=== PATIENT | female | born 1945 | race Caucasian/White ===

== ENCOUNTER 2019-03-15 22:25 | Inpatient (IN) | payer MEDICARE, OTHER ==
[~2019-03-15] VITALS: Ht 154.9 cm; Wt 68.0 kg
[~2019-03-15 22:25] MED LIST: AMLO-361 PO; ASPI1CPM PO; ATEN50TA PO; BENA40TA8 PO; DIPH1TAB PO; FLUO20CA42 PO; LEVO75TA7 PO; MECL-118 PO; METF-441 PO; OMEP20CA15 PO; PIOG45TA5 PO
--- NOTE | 2019-03-15 23:08 | NUR ---
BIBRA 37 FOR C/O INTERMITTENT TOOTHACHE X5 MONTHS. WAS SEEN AT [facility] ON SATURDAY GIVEN AMOX- CLAV PO
[2019-03-15] MEDS ORDERED: IV NS 0.9% 1,000 ML IV PRN (23:30)
[2019-03-15 23:41] LABS: BASOPHILS # (AUTO) 0.1 /CMM (0.0-0.2); BASOPHILS % (AUTO) 1.1 % (0.0-2.0); EOSINOPHILS % (AUTO) 0.8 % (0.0-6.0); HEMATOCRIT 32 % (33-45); HEMOGLOBIN 10.6 g/dL (11.5-14.8); LYMPHOCYTES # (AUTO) 1.3 /CMM (0.8-4.8); LYMPHOCYTES % (AUTO) 17.5 % (20.0-44.0); MEAN CORPUSCULAR HGB CONC 33 g/dl (31.0-36.0); MEAN CORPUSCULAR VOLUME 87 fL (82-100); MONOCYTES # (AUTO) 1.1 /CMM (0.1-1.30); MONOCYTES % (AUTO) 14.6 % (2.0-12.0); NEUTROPHILS # (AUTO) 4.8 /CMM (1.8-8.9); PLATELET COUNT (AUTO) 217 /CMM (150-450); RED BLOOD CELL COUNT(AUTO) 3.68 MIL/uL (4.0-5.2); WHITE BLOOD COUNT (AUTO) 7.2 K/uL (4.3-11.0)
[2019-03-15 23:46] LABS: CALCIUM, SERUM 8.9 mg/dL (8.5-10.1); CARBON DIOXIDE 27 mmol/L (21-32); CHLORIDE 102 mmol/L (98-107); CREATININE 1.9 mg/dL (0.6-1.3); GLUCOSE 204 mg/dL (74-106); POTASSIUM 4.2 mmol/L (3.5-5.1); SODIUM SERUM 139 mmol/L (136-145); UREA NITROGEN, BLOOD 38 mg/dL (7-18)
[2019-03-16] MEDS ORDERED: ACETAMINOPHEN 325 MG TABLET PO ONE (02:30)
[2019-03-16] MEDS ORDERED: ACETAMINOPHEN 325 MG TABLET ONE (02:35)
[2019-03-16] MEDS ORDERED: ROSU10TA2 PO (03:19)
[2019-03-16] MEDS ORDERED: HYDR25TA4 PO (03:19)
[2019-03-16] MEDS ORDERED: AMOX-430 PO (03:19)
[2019-03-16] MEDS ORDERED: AMLO-365 PO (03:19)
[2019-03-16 04:05] VITALS: BP 129/65
--- NOTE | 2019-03-16 04:05 | NUR ---
RN OPENING ADMISSION NOTES RECEIVED PATIENT FROM ER VIA, REJI SAFELY TRANSFERRED TO BED AWAKE ALERT AND ORIENTED X4, RESPIRATIONS EVEN AND UNLABORED WITH EQUAL RISE AND FALL OF CHEST, DENIES ANY PAIN OR DISCOMFORT AT THIS TIME, RIGHT AC #20 G INTACT AND PATENT , NO REDNESS, NO INFILTRATION PRESENT, BODY ASSESSMENT DONE, PICTURES TAKEN, BELONGINGS LIST DONE, MED RECON DONE AND RELAYED TO HOSPITALIST, ORIENTED TO STAFF AND CALL LIGHT AND KEPT WITHIN REACH , ALL NEEDS ATTENDED AT THIS TIME, WILL CONTINUE TO MONITOR AND ATTEND TO NEEDS, BLOOD PRESSURE WNL, AFEBRILE AT THIS TIME, WILL CONTINUE TO MONITOR AND ATTEND TO NEEDS.
[2019-03-16] MEDS ORDERED: HYDROCODONE/APAP 5/325MG 1 EACH TABLET PO PRN (04:30)
[2019-03-16] MEDS ORDERED: Z GUARD REMEDY 2 OZ OINT TP PRN (04:30)
[2019-03-16] MEDS ORDERED: MAGNESIUM HYDROXIDE 30 ML UDC PO PRN (04:30)
[2019-03-16] MEDS ORDERED: ZOLPIDEM TARTRATE 5 MG TABLET PO PRN (04:30)
[2019-03-16] MEDS ORDERED: DEXTROSE 50%-WATER 50 ML DISP.SYRIN IV PRN (04:30)
[2019-03-16] MEDS ORDERED: ONDANSETRON HCL/PF 4 MG/2 ML VIAL IVP PRN (04:30)
--- NOTE | 2019-03-16 04:30 | NUR ---
trasnfered pt to ms 2
[2019-03-16] MEDS: IV NS 0.9% 1,000 ML IV PRN (05:03)
[2019-03-16] MEDS: BLOOD SUGAR DIAGNOSTIC 1 EACH STRIP IN SCH ×4 (06:18→21:30)
[2019-03-16] MEDS: INSULIN REGULAR, HUMAN 100 UNIT/ML 3 ML VIAL SQ PRN (06:18)
--- NOTE | 2019-03-16 06:19 | NUR ---
RN MS NOTES PATIENT AND DAUGHTER REFUSED INSULIN PER SLIDING SCALE DESPITE EDUCATION STATES " DOES NOT TAKE INSULIN HAS NEVER TAKEN IT BEFORE."
[2019-03-16 06:21] LABS: BASOPHILS % (AUTO) 0.6 % (0.0-2.0); EOSINOPHILS % (AUTO) 0.9 % (0.0-6.0); HEMATOCRIT 30 % (33-45); HEMOGLOBIN 9.8 g/dL (11.5-14.8); LYMPHOCYTES # (AUTO) 1.3 /CMM (0.8-4.8); LYMPHOCYTES % (AUTO) 21.2 % (20.0-44.0); MEAN CORPUSCULAR HGB CONC 33 g/dl (31.0-36.0); MEAN CORPUSCULAR VOLUME 88 fL (82-100); MONOCYTES % (AUTO) 15.6 % (2.0-12.0); NEUTROPHILS # (AUTO) 3.9 /CMM (1.8-8.9); NEUTROPHILS % (AUTO) 61.7 % (43.0-81.0); PLATELET COUNT (AUTO) 190 /CMM (150-450); RED BLOOD CELL COUNT(AUTO) 3.37 MIL/uL (4.0-5.2); WHITE BLOOD COUNT (AUTO) 6.3 K/uL (4.3-11.0)
[2019-03-16 06:42] LABS: CARBON DIOXIDE 23 mmol/L (21-32); CHLORIDE 105 mmol/L (98-107); CREATININE 1.7 mg/dL (0.6-1.3); GLUCOSE 144 mg/dL (74-106); PHOSPHORUS 3.5 mg/dL (2.5-4.9); POTASSIUM 3.5 mmol/L (3.5-5.1); SODIUM SERUM 139 mmol/L (136-145); UREA NITROGEN, BLOOD 32 mg/dL (7-18)
--- NOTE | 2019-03-16 06:44 | NUR ---
RN MS NOTES RECTAL TEMPERATURE TAKEN 99.3 COOLING MEASURE PROVIDED
[2019-03-16 06:46] LABS: CHOLESTEROL 194 mg/dL (<200); HDL CHOLESTEROL 46 mg/dL (40-60); LDL 127 mg/dL (0-99); TRIGLYCERIDES 111 mg/dL (30-150)
[2019-03-16 06:50] LABS: MAGNESIUM 1.2 mg/dL (1.8-2.4)
--- NOTE | 2019-03-16 07:09 | NUR ---
RN CLOSING NOTES PATIENT AWAKE ALERT AND ORIENTED X4, RESPIRATIONS EVEN AND UNLABORED WITH EQUAL RISE AND FALL OF CHEST, DENIES ANY PAIN OR DISCOMFORT AT THIS TIME, RIGHT AC #20 G INTACT AND PATENT , NO REDNESS, NO INFILTRATION PRESENT, IVF RUNNING ORDERED. MED RECON DONE RELAYED TO HOSPITALIST WILL ENDORSE TO FOLLOW UP, CALL LIGHT KEPT WITHIN REACH , ALL NEEDS ATTENDED AT THIS TIME, WILL CONTINUE TO MONITOR AND ATTEND TO NEEDS, AFEBRILE AT THIS TIME, WILL CONTINUE TO MONITOR AND ATTEND TO NEEDS. ATTEMPTED TO CONTACT HOSPITALIST REGARDING MAG AT 1.2 UNABLE TO CONTACT WILL ENDORSE TO NEXT SHIFT.
[2019-03-16 08:00] VITALS: BP 107/61
[2019-03-16] MEDS ORDERED: MULT-661 PO (08:13)
[2019-03-16] MEDS: ACETAMINOPHEN 325 MG TABLET PO PRN ×2 (08:56→21:27)
--- NOTE | 2019-03-16 08:56 | NUR ---
RN NOTES ADMINISTERED TYLENOL 650 MG PO PRN FOR GENERALIZED PAIN, AND SHAKINESS. PER PATIENT REQUEST, CALL LIGHT WITHIN TO REACH, DAUGHTER NEXT TO THE BED.
[2019-03-16] MEDS: Magnesium 1GM/D5W 100ML PREMIX 100 ML IV SCH ×2 (11:24→12:06)
--- NOTE | 2019-03-16 12:07 | NUR ---
rn notes bs-185 mg/dl patient refused eat, and refused coverage, infusing magnesium 100 mg/ml iv infusion on right ac area intact, call light within to reach, continued monitoring.
[2019-03-16] MEDS ORDERED: CLINDAMYCIN 600 MG in IV NS 0.9% 50 ML IV SCH (13:00)
[2019-03-16 16:00] VITALS: BP 111/69
[2019-03-16] MEDS: CLINDAMYCIN 600 MG in IV D5W 50 ML IV SCH ×2 (17:17→21:22)
--- NOTE | 2019-03-16 18:30 | NUR ---
RN NOTES BS-170 MG/DL PATIENT REFUSED DINNER, ALSO REFUSED DINNER. INFUSING NS AT 75 ML/HR ON RIGHT AC AREA INTACT. V/S STABLE, REFUSED PAIN AT HIS TIME. DAUGHTER NEXT TO THE BED. CALL LIGHT WITHIN TO REACH. ENDORSED ONCOMING NURSE FOLLOW PLAN OF CARE..
--- NOTE | 2019-03-16 19:25 | NUR ---
RN OPEN NOTES RECEIVED PATIENT AWAKE IN BED. A/OX4. NO SIGNS OF DISTRESS OR DISCOMFORT. BREATHING EVEN AND UNLABORED. IV ACCESS IN RAC WITH NS INFUSING , PATENT AND INTACT, NO SIGNS OF REDNESS OR INFILTRATION. BED IN LOW LOCKED POSITION WITH SIDE RAILS X2. CALL LIGHT WITHIN REACH. WILL CONTINUE TO MONITOR.
[2019-03-16 20:32] VITALS: BP 153/75
[2019-03-17] MEDS: CLINDAMYCIN 600 MG in IV D5W 50 ML IV SCH ×3 (05:27→21:08)
[2019-03-17] MEDS: IV NS 0.9% 1,000 ML IV PRN (05:39)
[2019-03-17] MEDS: INSULIN REGULAR, HUMAN 100 UNIT/ML 3 ML VIAL SQ PRN (06:51)
[2019-03-17] MEDS: BLOOD SUGAR DIAGNOSTIC 1 EACH STRIP IN SCH ×4 (06:51→21:51)
--- NOTE | 2019-03-17 07:14 | NUR ---
RN CLOSING NOTES PATIENT RESTING IN BED. A/O X4. NO SIGNS OF DISTRESS OR DISCOMFORT. BREATHING EVEN AND UNLABORED. IV ACCESS IN RAC, PATENT AND INTACT, NO SIGNS OF REDNESS OR INFILTRATION. ALL NEEDS MET. NO SIGNIFICANT CHANGES THROUGH THE NIGHT BED IN LOW LOCKED POSITION WITH SIDE RAILS X2. CALL LIGHT WITHIN REACH. WILL ENDORSE TO AM SHIFT FOR STEVO.
[2019-03-17 07:52] LABS: CALCIUM, SERUM 8.3 mg/dL (8.5-10.1); CREATININE 1.3 mg/dL (0.6-1.3); MAGNESIUM 1.9 mg/dL (1.8-2.4); POTASSIUM 3.8 mmol/L (3.5-5.1)
[2019-03-17 08:00] VITALS: BP 133/68
--- NOTE | 2019-03-17 08:00 | NUR ---
RN NOTES RECEIVED PATIENT IN THE BED A/O X3 NO ACUTE RESPIRATORY DISTRESS, REFUSED PAIN ,V/S STABLE, PATIENT TOLERATED BREAKFAST 30%, WILL LOG PROCESSOR OPERATOR FOR CT AT THIS TIME. CALL LIGHT WITHIN TO REACH, SAFETY PRECAUTION MAINTAINED ALL THE TIME.
[2019-03-17] MEDS: MULTIVITAMINS,THERAGRAN 1 UDTAB TABLET PO SCH (09:11)
--- NOTE | 2019-03-17 09:17 | NUR ---
RN NOTES SEEN PATIENT BY Dr KHAN, NO NEW ORDERS AT THIS TIME, WILL FOLLOW HOSPITALIZATION, AND SAFETY. DAUGHTER NEXT TO THE BED.
--- NOTE | 2019-03-17 13:06 | NUR ---
RN NOTES BS-157 MG/DL REFUSED COVERAGE, PATIENT EATING LUNCH, REFUSED PAIN, CALL LIGHT WITHIN TO REACH, CONTINUED MONITORING.
[2019-03-17 16:00] VITALS: BP 132/66
--- NOTE | 2019-03-17 17:14 | NUR ---
rn notes bs-221 mg/dl, after snack , patient refused coverage.
--- NOTE | 2019-03-17 18:30 | NUR ---
rn notes PATIENT RESTING IN THE BED , REFUSED PAIN, NO ACUTE RESPIRATORY DISTRESS, ASSIST GOING TO THE BATHROOM, PATIENT HAS BM X2, CALL LIGHT WITHIN TO REACH, INFUSING NS AT 75 ML/HR ON LEFT HAND INTACT. CALL LIGHT WITHIN TO REACH. SAFETY PRECAUTION MAINTAINED ALL THE TIME. ENDORSED ONCOMING NURSE FOLLOW PLAN OF CARE.
--- NOTE | 2019-03-17 19:05 | NUR ---
MS RN NOTE RECEIVED PT IN STABLE CONDITION A/O X4, AWAKE WITH FAMILY AT BEDSIDE. NO SIGS OF SOB OR DISTRESS, NO COMPLAINTS OF PAIN OR N/V. IV IN L HAND #[address] WITH IVF INFUSING. ALL CURRENT NEEDS ATTENDED TO. BED LOW, LOCKED, UPPER RAILS UP, AND CALL LIGHT WITHIN REACH, WILL CONT. TO MONITOR.
--- NOTE | 2019-03-17 21:49 | NUR ---
MS RN NOTE PT NOTED WITH BLOOD SUGAR OF 201, PT REFUSING INSULIN. RISKS AND BENEFITS MADE AWARE. WILL CONT. TO MONITOR.
[2019-03-18] MEDS: IV NS 0.9% 1,000 ML IV PRN ×2 (03:20→21:13)
[2019-03-18] MEDS: CLINDAMYCIN 600 MG in IV D5W 50 ML IV SCH ×3 (04:09→21:08)
[2019-03-18] MEDS: BLOOD SUGAR DIAGNOSTIC 1 EACH STRIP IN SCH ×4 (06:43→21:13)
--- NOTE | 2019-03-18 06:46 | NUR ---
MS RN NOTE PT REMAINS IN STABLE CONDITION A/O X4, AWAKE WITH FAMILY AT BEDSIDE. NO SIGS OF SOB OR DISTRESS, NO COMPLAINTS OF PAIN OR N/V. IV IN L HAND #[address] WITH IVF INFUSING. ALL CURRENT NEEDS ATTENDED TO. BED LOW, LOCKED, UPPER RAILS UP, AND CALL LIGHT WITHIN REACH, WILL CONT. TO MONITOR AND ENDORSE TO NEXT SHIFT FOR STEVO.
--- NOTE | 2019-03-18 07:15 | NUR ---
MS RN NOTES PATIENT IN BED ALERT ORIENTED X 4. NO ACUTE DISTRESS NOTED. BREATHING UNLABORED. NO SOB NOTED. DENIED ANY PAIN AT THIS TIME. SAFETY MEASURES IN PLACE. CALL LIGHT WITHIN REACH. WILL CONTINUE TO MONITOR ACCORDINGLY.
[2019-03-18 08:00] VITALS: BP 139/79
[2019-03-18] MEDS: MULTIVITAMINS,THERAGRAN 1 UDTAB TABLET PO SCH (09:14)
--- NOTE | 2019-03-18 10:05 | NUR ---
MS RN NOTES PATIENT SEEN AND EVALUATED BY DR JOSH PATEL WITH NEW ORDER TO CONTINUE HOME MEDICATION METFORMIN 850MG BID TO AT THIS AFTERNOON AT 1700. ORDER CLARIFIED AND READ BACK, NOTED AND CARRIED OUT.
--- NOTE | 2019-03-18 12:00 | NUR ---
MS RN NOTES PATIENT REFUSED INSULIN DESPITE OF EXPLANATION OF RISKS AND BENEFITS, DR PATEL AWARE.
[2019-03-18] MEDS: INSULIN REGULAR, HUMAN 100 UNIT/ML 3 ML VIAL SQ PRN ×2 (12:16→17:01)
[2019-03-18 16:00] VITALS: BP 126/62
[2019-03-18] MEDS: METFORMIN 850 MG TABLET PO SCH (17:00)
--- NOTE | 2019-03-18 18:57 | NUR ---
MS RN NOTES PATIENT IN BED ALERT ORIENTED X 4. NO ACUTE DISTRESS NOTED. BREATHING UNLABORED. NO SOB NOTED. DENIED ANY PAIN AT THIS TIME.PATIENT REFUSED INSULIN ADMINISTRATION , DR PATEL AWARE. NEEDS ATTENDED AND ANTICIPATED. SAFETY MEASURES IN PLACE. CALL LIGHT WITHIN REACH. WILL ENDORSE TO NIGHT NURSE FOR CONTINUITY OF CARE.
--- NOTE | 2019-03-18 19:08 | NUR ---
MS RN NOTE RECEIVED PT IN STABLE CONDITION A/O X4, NOTED WITH FAMILY AT BEDSIDE. NO SIGNS OF SOB OR DISTRESS, NO C/O PAIN OR N/V. IV IN L HAND #[address] WITH IVF INFUSING. ALL CURRENT NEEDS ATTENDED TO. BED LOW, LOCKED, UPPER RAILS UP, AND CALL LIGHT WITHIN REACH. WILL CONT. TO MONITOR.
[2019-03-18 19:47] VITALS: BP 145/82
[2019-03-19] MEDS: CLINDAMYCIN 600 MG in IV D5W 50 ML IV SCH ×2 (04:06→12:01)
--- NOTE | 2019-03-19 06:39 | NUR ---
MS RN NOTE PT REMAINS IN STABLE CONDITION A/O X4, RESTING COMFORTABLY. NO SIGNS OF SOB OR DISTRESS, NO C/O PAIN OR N/V. IV IN L HAND #[address] WITH IVF INFUSING. ALL CURRENT NEEDS ATTENDED TO. BED LOW, LOCKED, UPPER RAILS UP, AND CALL LIGHT WITHIN REACH. WILL CONT. TO MONITOR AND ENDORSE TO NEXT SHIFT FOR STEVO.
[2019-03-19] MEDS: BLOOD SUGAR DIAGNOSTIC 1 EACH STRIP IN SCH ×2 (06:57→12:25)
[2019-03-19 07:30] VITALS: BP 129/69
--- NOTE | 2019-03-19 07:30 | NUR ---
MS RN OPENING NOTES RECEIVED PATIENT IN BED ASLEEP. [place]OU[place] TO VERBAL AND TACTILE STIMULI. NO SOB. DENIES ANY C/O PAIN NOR DISCOMFORT AT THIS TIME. LEFT HAND #22 INTACT AND PATENT. BED IN LOWEST POSITION, LOCKED. BED ALARM ON. CALL LIGHT WITHIN REACH. BED SIDERAILS UPX2.
--- NOTE | 2019-03-19 08:00 | NUR ---
MS RN NOTES PATIENT REFUSED TO BE CONNECTED TO IV FLUIDS.
[2019-03-19] MEDS: METFORMIN 850 MG TABLET PO SCH (08:13)
[2019-03-19] MEDS: MULTIVITAMINS,THERAGRAN 1 UDTAB TABLET PO SCH (08:13)
[2019-03-19] MEDS ORDERED: CLIN300C11 PO (10:45)
--- NOTE | 2019-03-19 12:26 | NUR ---
MS RN NOTES BS 143MG/DL, PATIENT REFUSED INSULIN.
[2019-03-19 12:39] LABS: POTASSIUM 4.2 mmol/L (3.5-5.1)
--- NOTE | 2019-03-19 13:54 | NUR ---
MS RN CLOSING/DISCHARGE NOTES ALERT AND AWAKE ORIENTED X4. AMBULATORY WITH STEADY GAIT WITH THE USE OF WALKER. NO SOB. DENIES ANY C/O PAIN NOR DISCOMFORT AT THIS TIME. LEFT HAND IV ACCESS REMOVED WITH CATHETER TIP INTACT. ALL BELONGINGS ACCOUNTED FOR. DISCHARGE INSTRUCTIONS AND PACKET GIVEN TO PATIENT'S DAUGHTER AND EDUCATION GIVEN TO PATIENT AND PATIENT'S DAUGHTER. PATIENT PICKED UP BY DAUGHTER AND LEFT VIA PRIVATE VEHICLE. LEFT IN STABLE CONDITION.
== END 2019-03-19 14:30 | disposition home or self-care (01) | DRG 157 ==
LOC: ER 22:26 → MEDSG2 03-16 02:52
PROVIDERS: ADMIT Internal Medicine; ATTEND Internal Medicine
DX: K04.7 Periapical abscess without sinus (principal); N17.0 Acute kidney failure with tubular necrosis; L03.211 Cellulitis of face; E86.0 Dehydration; I25.10 Atherosclerotic heart disease of native coronary artery without angina pectoris; Z95.5 Presence of coronary angioplasty implant and graft; E03.9 Hypothyroidism, unspecified; E83.42 Hypomagnesemia; D64.9 Anemia, unspecified; E11.9 Type 2 diabetes mellitus without complications; E78.00 Pure hypercholesterolemia, unspecified; K21.9 Gastro-esophageal reflux disease without esophagitis; F41.9 Anxiety disorder, unspecified; F32.9 Major depressive disorder, single episode, unspecified; I10 Essential (primary) hypertension; M27.2 Inflammatory conditions of jaws
CPT/HCPCS: 36415; 70486-TC; 80048-TC; 80061-TC; 82962-TC; 83735-TC; 84100-TC; 85025-TC; 87040-TC; 87081-TC; 97110-TC; 97116-TC; 97530-TC; A4216; G0378; J1815; J3475; J3490; J7030; J7060

== ENCOUNTER 2020-10-23 15:33 | Inpatient (IN) | payer MEDICARE, OTHER ==
[~2020-10-23] VITALS: Ht 152.4 cm; Wt 70.4 kg
[~2020-10-23 15:33] MED LIST changes: -AMLO-361 PO; +AMLO-365 PO; -ASPI1CPM PO; -ATEN50TA PO; +CLIN300C12 PO; -FLUO20CA42 PO; +HYDR25TA4 PO; -LEVO75TA7 PO; +MULT-661 PO; -OMEP20CA15 PO; -PIOG45TA5 PO; +ROSU10TA2 PO
--- NOTE | 2020-10-23 16:11 | NUR ---
BIB DAUGHTER C/O "FAST HEART RATE" AND NON-RADIATING CHEST PAIN SINCE NOON. IN ROOM AIR AND DENIES SOB. RESPIRATION REGULAR AND UNLABORED. ATTACHED TO THE MONITOR. WILL CONTINUE TO MONITOR THE PATIENT.
[2020-10-23 16:29] LABS: BASOPHILS # (AUTO) 0.1 K/uL (0.0-0.2); BASOPHILS % (AUTO) 0.9 % (0.0-2.0); EOSINOPHILS % (AUTO) 0.8 % (0.0-6.0); HEMATOCRIT 37 % (33-45); LYMPHOCYTES # (AUTO) 1.6 K/uL (0.8-4.8); LYMPHOCYTES % (AUTO) 23.9 % (20.0-44.0); MEAN CORPUSCULAR HGB CONC 32 g/dl (31.0-36.0); MEAN CORPUSCULAR VOLUME 90 fL (82-100); MONOCYTES % (AUTO) 15.9 % (2.0-12.0); NEUTROPHILS # (AUTO) 3.8 K/uL (1.8-8.9); NEUTROPHILS % (AUTO) 58.5 % (43.0-81.0); PLATELET COUNT (AUTO) 319 K/uL (150-450); RED BLOOD CELL COUNT(AUTO) 4.15 MIL/uL (4.0-5.2); WHITE BLOOD COUNT (AUTO) 6.5 K/uL (4.3-11.0)
[2020-10-23 16:43] LABS: CALCIUM, SERUM 9.4 mg/dL (8.5-10.1); CARBON DIOXIDE 23 mmol/L (21-32); CHLORIDE 106 mmol/L (98-107); GLUCOSE 249 mg/dL (74-106); POTASSIUM 4.9 mmol/L (3.5-5.1); SODIUM SERUM 141 mmol/L (136-145); UREA NITROGEN, BLOOD 29 mg/dL (7-18)
--- NOTE | 2020-10-23 16:49 | NUR ---
MOVE SHEET SUBMITTED AND CALLED FOR BED.
[2020-10-23] MEDS ORDERED: OLME1TAB34 PO (16:51)
[2020-10-23] MEDS ORDERED: DIGO250T PO (16:51)
[2020-10-23 17:06] LABS: LYMPHOCYTES % (MANUAL) 28 % (16-48); MONOCYTES % (MANUAL) 19 % (0-11.0); NEUTROPHILS % (MANUAL) 53 (42-76)
[2020-10-23 17:13] LABS: ALANINE AMINOTRANSFERASE 31 U/L (12-78); ALBUMIN 3.8 g/dL (3.4-5.0); ALKALINE PHOSPHATASE 70 U/L (46-116); ASPARTATE AMINOTRANSFERASE 28 U/L (15-37); BILIRUBIN,DIRECT 0.1 mg/dL (0.0-0.2); BILIRUBIN,TOTAL 0.3 mg/dL (0.2-1.0); TOTAL PROTEIN, SERUM 7.8 g/dL (6.4-8.2)
[2020-10-23] MEDS ORDERED: IV NS 0.9% 1,000 ML BAG IV ONE (18:00)
[2020-10-23] MEDS ORDERED: ASPIRIN 81 MG TAB.CHEW PO ONE (18:00)
[2020-10-23] MEDS ORDERED: Z GUARD REMEDY 2 OZ OINT TP PRN (18:30)
[2020-10-23] MEDS ORDERED: MAG HYDROX/AL HYDROX/SIMETH 30 ML UDC PO PRN (18:30)
[2020-10-23] MEDS ORDERED: ONDANSETRON HCL/PF 4 MG/2 ML VIAL IVP PRN (18:30)
[2020-10-23] MEDS ORDERED: MAGNESIUM HYDROXIDE 30 ML UDC PO PRN (18:30)
[2020-10-23] MEDS ORDERED: ACETAMINOPHEN 325 MG TABLET PO PRN (18:30)
--- NOTE | 2020-10-23 18:49 | NUR ---
REPORT GIVEN TO NURSE MARIAM
[2020-10-23] MEDS ORDERED: ASPIRIN 81 MG TAB.CHEW ONE (18:51)
--- NOTE | 2020-10-23 18:57 | NUR ---
UA PROFILE ORDER PER DR PERES
[2020-10-23] MEDS ORDERED: DILTIAZEM HCL 25 MG IV IV PRN (19:00)
--- NOTE | 2020-10-23 19:15 | NUR ---
THE PATIENT IS TRANSFERED TO ASSIGNED ROOM IN STABLE CONDITION AND PER POLICY.
[2020-10-23 19:23] LABS: BILIRUBIN,URINE NEGATIVE (NEGATIVE); COLOR,URINE YELLOW (YELLOW); LEUKOCYTE ESTERASE ,URINE SMALL (NEGATIVE); NITRITE, URINE NEGATIVE (NEGATIVE); PROTEIN,URINE NEGATIVE (NEGATIVE); UGLUCOSE NEGATIVE (NEGATIVE); UROBILINOGEN,URINE 0.2 EU/dL (0.2)
--- NOTE | 2020-10-23 19:30 | NUR ---
HEAVY REPAIRERBARREL CLEANER NOTES RECEIVED PATIENT FROM ER, VIA REJI, AWAKE, A/O X4, UPPER SORBIAN SPEAKING. WITH IV ACCESS AT LEFT HAND G20, INTACT AND FLUSHES WELL. SALINE LOCKED. ON ROOM AIR AND NO SOB NOTED. WITH NO COMPLAINTS OF PAIN AT THIS TIME. PATIENT IS SELF AMBULATORY. ON TELE MONITOR WITH THE READING OF SR AT 86BPM. MADE COMFORTABLE ON BED. SAFETY MEASURES IN PLACED. CALL LIGHT WITHIN REACH. BED ON LOWEST AND LOCKED POSITION. SIDE RAILS UP X2. WILL CONTINUE TO MONITOR
[2020-10-23 19:38] LABS: BACTERIA,URINE 1+ /HPF (None Seen); RBC,URINE 0-2 /HPF (0-2); SQUAMOUS EPITHELIAL CELL,UR 0-2 /HPF (None Seen)
[2020-10-23] MEDS: IV NS 0.9% 1,000 ML IV PRN (22:01)
[2020-10-24 00:30] VITALS: BP 194/78
[2020-10-24 04:00] VITALS: BP 137/69
[2020-10-24 04:49] VITALS: BP 137/69
[2020-10-24 06:22] LABS: BASOPHILS % (AUTO) 0.5 % (0.0-2.0); EOSINOPHILS % (AUTO) 0.9 % (0.0-6.0); HEMATOCRIT 34 % (33-45); HEMOGLOBIN 11.1 g/dL (11.5-14.8); LYMPHOCYTES # (AUTO) 1.3 K/uL (0.8-4.8); MEAN CORPUSCULAR HGB CONC 33 g/dl (31.0-36.0); MEAN CORPUSCULAR VOLUME 89 fL (82-100); MONOCYTES # (AUTO) 0.8 K/uL (0.1-1.30); MONOCYTES % (AUTO) 11.9 % (2.0-12.0); NEUTROPHILS # (AUTO) 4.5 K/uL (1.8-8.9); NEUTROPHILS % (AUTO) 66.7 % (43.0-81.0); PLATELET COUNT (AUTO) 279 K/uL (150-450); WHITE BLOOD COUNT (AUTO) 6.7 K/uL (4.3-11.0)
--- NOTE | 2020-10-24 06:33 | NUR ---
PREVOCATIONAL/REHABILITATION COUNSELOR CLOSING NOTES PATIENT ON, ASLEEP. WITH IV ACCESS AT LEFT HAND G20, INTACT AND FLUSHES WELL, SALINE LOCKED. ON ROOM AIR AND NO SOB NOTED. WITH NO COMPLAINTS OF PAIN AT THIS TIME. PATIENT IS SELF AMBULATORY. ON TELE MONITOR WITH THE READING OF SR AT 84BPM WITH SOME PACs AND PVCs. SAFETY MEASURES IN PLACED. CALL LIGHT WITHIN REACH. BED ON LOWEST AND LOCKED POSITION. SIDE RAILS UP X2. WILL ENDORSE FOR STEVO TO NEXT SHIFT.
[2020-10-24 07:05] LABS: CALCIUM, SERUM 8.7 mg/dL (8.5-10.1); CARBON DIOXIDE 24 mmol/L (21-32); CHLORIDE 111 mmol/L (98-107); CREATININE 1.5 mg/dL (0.6-1.3); GLUCOSE 174 mg/dL (74-106); MAGNESIUM 1.7 mg/dL (1.8-2.4); PHOSPHORUS 3.5 mg/dL (2.5-4.9); POTASSIUM 4.5 mmol/L (3.5-5.1); SODIUM SERUM 145 mmol/L (136-145); UREA NITROGEN, BLOOD 24 mg/dL (7-18)
[2020-10-24 07:08] LABS: CHOLESTEROL 154 mg/dL (<200); HDL CHOLESTEROL 76 mg/dL (40-60); LDL 64 mg/dL (0-99); TRIGLYCERIDES 120 mg/dL (30-150)
[2020-10-24 08:00] VITALS: BP 151/73
[2020-10-24] MEDS ORDERED: Medication Not On Formulary EA (Olmesartan Med/Amlodipine/Hctz (Tribenzor 40-10-25 Mg Ta PO SCH (09:00)
[2020-10-24] MEDS ORDERED: DIGOXIN 0.25 MG TABLET PO SCH (09:00)
[2020-10-24] MEDS: AMLODIPINE BESYLATE 5 MG TABLET PO SCH (09:14)
[2020-10-24] MEDS ORDERED: Magnesium 1GM/D5W 100ML PREMIX 100 ML IV SCH (10:00)
[2020-10-24] MEDS: CEFTRIAXONE 1 G in IV D5W 50 ML IV SCH (12:18)
--- NOTE | 2020-10-24 19:00 | NUR ---
PROPOSAL DEVELOPMENT MANAGER OPENING NOTE RECEIVED PT AWAKE IN BED. A/OX4.YAKUT SPEAKING PT STABLE ON RA, SR WITH INNERVATED T WAVE @ 93, NO SOB OR RESPIRATORY DISTRESS NOTED. NO C/O PAIN AT THIS TIME. IV ACCESS IN L WRIST AC G# 20. NS @75ML/HR, IV IS INTACT, PATENT AND FLUSHING WELL. SAFETY MEASURES MAINTAINED AT ALL TIMES. BED IN LOWEST LOCKED POSITION, HOB ELEVATED, SIDE RAILS UPX2. CALL LIGHT AND TABLE WITHIN REACH. WILL CONTINUE WITH PLAN OF CARE.
--- NOTE | 2020-10-24 19:01 | NUR ---
CHANGE OF SHIFT REPORT PT RESTING COMFORTABLY IN BED. NO S/S OR C/O PAIN OR DISTRESS NOTED. SIDE RAILS UP X2, CALL LIGHT LEFT WITHIN REACH. PT KEPT CLEAN, DRY, AND COMFORTABLE. NO SIGNIFICANT CHANGES SINCE PREVIOUS SHIFT. WILL GIVE REPORT TO BRONSON DE LA TORRE.
[2020-10-24 20:00] VITALS: BP 132/66
[2020-10-25] VITALS: BP 118/51
[2020-10-25 04:00] VITALS: BP 121/61
[2020-10-25] MEDS: IV NS 0.9% 1,000 ML IV PRN (05:01)
[2020-10-25 06:17] LABS: BASOPHILS % (AUTO) 0.5 % (0.0-2.0); EOSINOPHILS % (AUTO) 2.2 % (0.0-6.0); HEMATOCRIT 35 % (33-45); HEMOGLOBIN 11.1 g/dL (11.5-14.8); LYMPHOCYTES # (AUTO) 1.5 K/uL (0.8-4.8); LYMPHOCYTES % (AUTO) 24.5 % (20.0-44.0); MEAN CORPUSCULAR HGB CONC 32 g/dl (31.0-36.0); MEAN CORPUSCULAR VOLUME 91 fL (82-100); MONOCYTES # (AUTO) 0.9 K/uL (0.1-1.30); MONOCYTES % (AUTO) 14.8 % (2.0-12.0); NEUTROPHILS # (AUTO) 3.5 K/uL (1.8-8.9); PLATELET COUNT (AUTO) 258 K/uL (150-450); RED BLOOD CELL COUNT(AUTO) 3.82 MIL/uL (4.0-5.2)
--- NOTE | 2020-10-25 06:37 | NUR ---
RN CLOSING NOTE PT IS IN BED AND AWAKE. A/OX4. PT IS STABLE ON OXYGEN 2L NC. NO SOB OR RESPIRATORY DISTRESS NOTED. PT IS AMBULATORY WITH BRP. IV ACCESS L WRIST G#20 IS INTACT, PATENT, AND FLUSHING WELL. ALL NEEDS HAVE BEEN MET. ALL CARE, NEEDS, MEDICATIONS, AND TREATMENT ADMINISTERED ANTICIPATED PER ORDER. PT ENCOURAGED TO REPOSITION Q2H AND PRN. SAFETY, SEIZURE, AND ASPIRATION PRECAUTIONS MAINTAINED AT ALL TIMES. BED IN LOWEST LOCKED POSITION, HOB ELEVATED, SIDE RAILS UP X2. CALL LIGHT AND TABLE WITHIN REACH. WILL ENDORSE TO ONCOMING NURSE FOR STEVO. Addendum: 10/25/20 at 0638 by TANIA MCPHERSON RN RN CLOSING NOTE PT IS IN BED AND AWAKE. A/OX4. PT IS STABLE ON RA. NO SOB OR RESPIRATORY DISTRESS NOTED. PT IS AMBULATORY WITH BRP. IV ACCESS L WRIST G#20 IS INTACT, PATENT, AND FLUSHING WELL. ALL NEEDS HAVE BEEN MET. ALL CARE, NEEDS, MEDICATIONS, AND TREATMENT ADMINISTERED ANTICIPATED PER ORDER. PT ENCOURAGED TO REPOSITION Q2H AND PRN. SAFETY, SEIZURE, AND ASPIRATION PRECAUTIONS MAINTAINED AT ALL TIMES. BED IN LOWEST LOCKED POSITION, HOB ELEVATED, SIDE RAILS UP X2. CALL LIGHT AND TABLE WITHIN REACH. WILL ENDORSE TO ONCOMING NURSE FOR STEVO.
[2020-10-25 07:27] LABS: CALCIUM, SERUM 8.9 mg/dL (8.5-10.1); CREATININE 1.3 mg/dL (0.6-1.3); MAGNESIUM 1.8 mg/dL (1.8-2.4); POTASSIUM 4.4 mmol/L (3.5-5.1)
--- NOTE | 2020-10-25 07:30 | NUR ---
TELE/RN OPENING NOTES RECEIVED PATIENT ON BED AWAKE ALERT AND ORIENTED X4. PATIENT IS ON ROOM AIR. PATIENT IN NO APPARENT RESPIRATORY DISTRESS NOTED. NO COMPLAINED OF PAIN AT THIS TIME. TELE MONITOR READING SINUS RHYTHM WITH INVERTED T WAVE, PAC 86 BPM. WILL CONTINUE TO MONITOR.
[2020-10-25] MEDS: AMLODIPINE BESYLATE 5 MG TABLET PO SCH (08:14)
[2020-10-25 08:15] VITALS: BP 119/63
[2020-10-25] MEDS ORDERED: DIGO250T PO (09:02)
[2020-10-25] MEDS: CEFTRIAXONE 1 G in IV D5W 50 ML IV SCH (09:08)
--- NOTE | 2020-10-25 11:43 | NUR ---
RN NOTES PATIENT IS ALERT AND ORIENTED X4. PATIENT IN NO APPARENT RESPIRATORY DISTRESS NOTED. NO COMPLAINED OF PAIN NOTED AT THIS TIME. SEEN AND EXAMINED BY MD WITH ORDERS MADE AND CARRIED OUT. ALL DUE MEDICATIONS WAS GIVEN.DISCHARGED INSTRUCTIONS WAS GIVEN AND PATIENT VERBALIZED UNDERSTANDING. PATIENT LEFT IN MEDICALLY STABLE CONDITION. DIRECTOR OF NEUROLOGY BY IRAIDA ALEJANDRE VIA PRIVATE CAR.
== END 2020-10-25 12:27 | disposition home or self-care (01) | DRG 313 ==
LOC: ER 15:33 → TELE 18:09
PROVIDERS: ADMIT Internal Medicine; ATTEND Internal Medicine
DX: R07.89 Other chest pain (principal); N17.0 Acute kidney failure with tubular necrosis; E43 Unspecified severe protein-calorie malnutrition; E87.2 Acidosis; N39.0 Urinary tract infection, site not specified; I48.91 Unspecified atrial fibrillation; E11.9 Type 2 diabetes mellitus without complications; I10 Essential (primary) hypertension; I25.10 Atherosclerotic heart disease of native coronary artery without angina pectoris; Z95.5 Presence of coronary angioplasty implant and graft; Z88.1 Allergy status to other antibiotic agents; Z91.018 Allergy to other foods; Z79.899 Other long term (current) drug therapy; E83.42 Hypomagnesemia
CPT/HCPCS: 36415; 71045-TC; 80048-TC; 80061-TC; 80076-TC; 80162-TC; 81001; 83735-TC; 83880; 84100-TC; 84484-TC; 85025-TC; 85378-TC; 87081-TC; 87086-TC; 93307-TC; G0378; J0696; J3475; J7030; J7040; J7060

== ENCOUNTER 2023-02-12 17:34 | Emergency (ER) | payer MEDICARE, OTHER ==
[~2023-02-12] VITALS: Ht 152.4 cm; Wt 71.7 kg
[~2023-02-12 17:34] MED LIST changes: -AMLO-365 PO; -BENA40TA8 PO; -CLIN300C12 PO; +DIGO250T PO; -DIPH1TAB PO; -HYDR25TA4 PO; -MECL-118 PO; -METF-441 PO; -MULT-661 PO; +OLME1TAB34 PO; -ROSU10TA2 PO
[2023-02-12] MEDS ORDERED: ACYC-108 PO (18:23)
[2023-02-12] MEDS ORDERED: TRAM50TA2 PO (18:23)
[2023-02-12 18:49] VITALS: BP 159/68; TEMP 97.1; O2SAT 99
== END 2023-02-12 18:49 | disposition home or self-care (01) ==
LOC: ER 17:45
DX: B02.9 Zoster without complications (principal); I10 Essential (primary) hypertension; Z88.0 Allergy status to penicillin; Z91.018 Allergy to other foods

== ENCOUNTER 2024-10-03 09:28 | Emergency (ER) | payer MEDICARE, OTHER ==
[~2024-10-03] VITALS: Ht 152.4 cm; Wt 68.0 kg
[~2024-10-03 09:28] MED LIST changes: +ACYC-108 PO; +TRAM50TA2 PO
[2024-10-03 10:17] VITALS: BP 139/84; TEMP 98; O2SAT 96
== END 2024-10-03 10:17 | disposition home or self-care (01) ==
LOC: ER 09:28
DX: M79.644 Pain in right finger(s) (principal); I10 Essential (primary) hypertension; Z79.899 Other long term (current) drug therapy; Z88.0 Allergy status to penicillin